=== PATIENT | male | born 1955 | race Caucasian/White ===

== ENCOUNTER 2019-01-13 19:03 | Emergency (ER) | payer OTHER ==
--- NOTE | 2019-01-13 20:28 | RAD ---
RIGHT ANKLE THREE VIEWS: 01/13/19 HISTORY: Injury, right ankle pain. FINDINGS/IMPRESSION: Soft tissue swelling is present. The ankle mortise is maintained. A tiny bony density seen adjacent t o the lateral malleolus which may represent a fracture. POS: ANTWON
--- NOTE | 2019-01-13 20:29 | RAD ---
RIGHT FOOT THREE VIEWS: 01/13/19 HISTORY: Injury, right foot pain. FINDINGS/IMPRESSION: No acute fracture or dislocation is identified. POS: ANTWON
--- NOTE | 2019-01-13 20:30 | RAD ---
LEFT FOOT THREE VIEWS: 01/13/19 HISTORY: Injury, left foot pain. FINDINGS/IMPRESSION: No acute fracture or dislocation is seen. Plantar calcaneal spur is present. POS: ANTWON
== END 2019-01-13 20:31 | disposition home or self-care (01) ==
LOC: ERS 19:03
DX: S82.61XA Displaced fracture of lateral malleolus of right fibula, initial encounter for closed fracture (principal); M10.9 Gout, unspecified; Z79.899 Other long term (current) drug therapy

== ENCOUNTER 2023-11-16 13:21 | Emergency (ER) | payer OTHER ==
[2023-11-16 15:14] LABS: Bilirubin Negative (Negative); Blood, Urine Negative (Negative); Glucose, Urine (Dipstick) Negative (Negative); Ketone, Urine Negative (Negative); Leukocyte Negative (Negative); Nitrite Negative (Negative); Protein, Urine (Dipstick) Negative (Neg-Trace); Urobilinogen 0.2 mg/dL (Less than 2)
[2023-11-16 15:15] LABS: Clarity Clear (Clear); Specific Gravity, Urine 1.008 (1.002-1.036)
[2023-11-16 15:18] LABS: Bacteria/HPF None Seen HPF (None Seen); CAUTI Indications for Culture Pelvic or flank pain; RBC/HPF 0-3 HPF (0-3); Squamous Epithelial None Seen HPF (0-3); WBC/HPF None Seen HPF (0-3)
[2023-11-16 15:19] LABS: Urine Culture Reflex No No
== END 2023-11-16 16:30 | disposition home or self-care (01) ==
LOC: ERS 13:21
DX: R33.9 Retention of urine, unspecified (principal); M10.9 Gout, unspecified; G30.9 Alzheimer's disease, unspecified; F02.80 Dementia in other diseases classified elsewhere, unspecified severity, without behavioral disturbance, psychotic disturbance, mood disturbance, and anxiety; Z79.899 Other long term (current) drug therapy
CPT/HCPCS: 81001; 99283